=== PATIENT | male | born 1945 | race Caucasian/White ===

== ENCOUNTER 2024-04-15 06:34 | Observation (INO) ==
[~2024-04-15 06:34] MED LIST: Metoclopramide 5 MG/ML VIAL (10 mg) IV PRN; NS 0.45% 1000 ml BAG 1,000 ML IV SCH; Naloxone 0.4 mg VIAL 0.4 mg/ml 1 ml VIAL IV PRN; Ondansetron 4 mg VIAL 2 MG/ML 2 ml VIAL IV PRN; fentaNYL 100 mcg/2 ml 50 MCG/ML VIAL IV PRN
[2024-04-15] MEDS ORDERED: Tranexamic Acid 1 GM/100ML BAG 2,000 MG/200 ML BAG IV ONE (07:21)
[2024-04-15] MEDS ORDERED: ceFAZolin 2 GM PREMIX 2 GM/50 ML BAG ONE (07:21)
[2024-04-15] MEDS: Buffered Lidocaine 1% SYRIN 1 ml INTRADERM ONE (07:37)
[2024-04-15] MEDS: Lactated Ringers 1000 ml BAG 1,000 ML IV SCH ×2 (07:37→13:22)
[2024-04-15] MEDS: Scopolamine 1 mg/72hr PATCH TRANSDERM ONE (07:37)
[2024-04-15] MEDS ORDERED: ROPIVACAINE 5 MG/ML 30 ML BTL (0.5%) ONE ×2 (07:47→08:16)
[2024-04-15] MEDS ORDERED: Lidocaine 2% PF 5 ML VIAL ONE ×2 (07:47→08:14)
[2024-04-15] MEDS ORDERED: Midazolam 2 mg/2 ml VIAL 1 mg/ml 2 ml VIAL (2 mg) ONE ×2 (07:47→08:14)
[2024-04-15] MEDS ORDERED: fentaNYL 100 mcg/2 ml 50 MCG/ML VIAL ONE ×2 (07:47→08:14)
[2024-04-15] MEDS ORDERED: Dexamethasone IV 4 MG/ML VIAL 1 ml VIAL ONE ×2 (07:47→09:09)
[2024-04-15] MEDS ORDERED: Propofol 10 MG/ML 20 ML BTL ONE ×3 (08:14→09:48)
[2024-04-15 08:38] LABS: Rapid COVID-19 Molecular Undetected (Undetected)
[2024-04-15] MEDS ORDERED: Ondansetron 4 mg VIAL 2 MG/ML 2 ml VIAL ONE (09:09)
[2024-04-15] MEDS ORDERED: Phenylephrine IV 10 MG/ML 1 ml VIAL ONE (10:51)
[2024-04-15] MEDS ORDERED: Lactulose 30 ml UDC PO PRN (11:35)
[2024-04-15] MEDS ORDERED: Morphine 2 MG/ML SYRINGE IV PRN (11:35)
[2024-04-15] MEDS ORDERED: Magnesium Hydroxide LIQ 30 ML UDC PO PRN (11:35)
[2024-04-15] MEDS ORDERED: Calcium Carb (TUMS) 500 mg CHEW TAB PO PRN (11:35)
[2024-04-15] MEDS ORDERED: Ondansetron ODT 4 mg TAB 4 MG TAB PO PRN (11:35)
[2024-04-15] MEDS ORDERED: Ondansetron 4 mg VIAL 2 MG/ML 2 ml VIAL IV PRN (11:35)
[2024-04-15] MEDS: Acetaminophen IV 1 GM/100ML 1,000 MG/100 ML BAG IV ONE (14:34)
[2024-04-15] MEDS: Metoprolol Tartrate 5 mg VIAL 5 ml VIAL (1 mg/ml) IV PRN (16:48)
[2024-04-15 17:19] LABS: Calcium 9.4 mg/dL (8.6-10.3); Creatinine, Serum 1.2 mg/dL (0.67-1.17); Magnesium 1.8 mg/dL (1.9-2.7); Potassium 4.5 mmol/L (3.5-5.0); eGFR CKD-EPI 62.7 (>60)
[2024-04-15] MEDS: Magnesium Sulfate 2 gm BAG 2 GM/50 ML BAG IVPB ONE (17:23)
[2024-04-15] MEDS: ceFAZolin 2 GM PREMIX 2 GM/50 ML BAG IV SCH (18:38)
[2024-04-15] MEDS: Magnesium Hydroxide LIQ 30 ML UDC PO SCH (21:05)
[2024-04-16 06:48] LABS: Hematocrit 37.7 % (38-53); Hemoglobin 12.5 g/dL (13.2-16.3); Mean Platelet Volume 8.6 fL (7.5-11.2); Platelet Count 216 10^3/uL (150-450)
[2024-04-16 07:06] LABS: Calcium 8.9 mg/dL (8.6-10.3); Creatinine, Serum 1.12 mg/dL (0.67-1.17); Potassium 4.9 mmol/L (3.5-5.0); eGFR CKD-EPI 68.1 (>60)
[2024-04-16] MEDS: Vitamin THERAPEUTIC TAB PO SCH (08:11)
[2024-04-16 09:15] LABS: Magnesium 2.3 mg/dL (1.9-2.7)
[2024-04-16 10:45] VITALS: BP 151/80
== END 2024-04-16 13:30 | disposition home or self-care (01) ==
LOC: AA 06:34 → INTOOBSV 06:34 → SSU 11:35
PROVIDERS: ADMIT Orthopaedic Surgery Adult Reconstructive Orthopaedic Surgery; ATTEND Orthopaedic Surgery Adult Reconstructive Orthopaedic Surgery